=== PATIENT | male | born 1995 | race Two or more races ===

== ENCOUNTER 2016-12-22 16:43 | Emergency (ER) | payer MEDICAID ==
[~2016-12-22] VITALS: Ht 170.2 cm; Wt 74.8 kg
[2016-12-22] MEDS ORDERED: UNOBMED (16:54)
[2016-12-22 16:58] VITALS: BP 113/63
--- NOTE | 2016-12-22 18:18 | Emergency Room Report ---
History of Present Illness General Chief Complaint: Medical Clearance Source: Patient Present Illness HPI 21-year-old male presents emergency department complaining of pain, swelling and erythema to the cuticle of the left ring finger. Patient states that he had previous incision and drainage and was placed on antibiotics however he did not complete his antibiotics. The patient reports worsening of symptoms. Patient denies nausea, vomiting, fevers, chills, tenderness to the finger pad. Patient denies inability to straighten or flex the affected finger. Patient also presents in police custody and is requiring medical clearance. Denies numbness tingling or loss of sensation or gross motor movements of the extremities, incontinence of bowel or bladder. Denies CP, Palpitations, LOC, AMS , dizziness, Changes in Vision, Sensation, paresthesias, or a sudden severe headache. Allergies: Coded Allergies: SULFA (SULFONAMIDE ANTIBIOTICS) (Verified Allergy, Unknown, 12/22/16) Patient History Past Medical History: see triage record Past Surgical History: none Pertinent Family History: none Immunizations: UTD Reviewed Nursing Documentation: PMH: Agreed, PSxH: Agreed Nursing Documentation-PMH Past Medical History: No Stated History Review of Systems All Other Systems: negative except mentioned in HPI Physical Exam Vital Signs Date Time Temp Pulse Resp B/P Pulse Ox O2 Delivery O2 Flow Rate FiO2 12/22/16 16:48 98.2 86 16 113/63 99 Room Air Sp02 EP Interpretation: reviewed, normal General Appearance: no apparent distress, alert, GCS 15, non-toxic Head: normocephalic, atraumatic Eyes: bilateral eye PERRL, bilateral eye normal inspection ENT: hearing grossly normal, normal pharynx, no angioedema, normal voice Neck: full range of motion, supple/symm/no masses Respiratory: chest non-tender, lungs clear, normal breath sounds, speaking full sentences Cardiovascular #1: regular rate, rhythm, no edema Cardiovascular #2: 2+ radial (R), 2+ radial (L) Gastrointestinal: non tender, soft, no guarding, no rebound Rectal: deferred Genitourinary: normal inspection, no CVA tenderness Musculoskeletal: back normal, gait/station normal, normal range of motion, no calf tenderness, inflammation - erythema, and increased temperature to palpation of the left ring finger. , swelling, tender - TTP to the left ring finger Neurologic: alert, oriented x3, responsive, motor strength/tone normal, sensory intact, speech normal Psychiatric: judgement/insight normal, memory normal, mood/affect normal, no suicidal/homicidal ideation Skin: no rash, warm/dry, well hydrated, other - eponychia of the left ring finger Lymphatic: no adenopathy Procedures Incision and Drainage Incision and Drainage : Consent: Verbal Site: cuticle of the left ring finger Blade Size: 11 I & D Procedure: betadine prep Wound Location: upper extremity - left ring finger Wound's Depth, Shape: superficial Wound Length (cm): 0 Wound Explored: contaminated - purulent d/c expressed Splint Applied?: No Sling Applied?: No Patient Tolerated: Well Complications: None Medical Decision Making PA Attestation Dr. Viramontes is my supervising Physician whom patient management has been discussed with. Diagnostic Impression: Primary Impression: Eponychia ER Course Pt. presents to the ED c/o pain, swelling, and erythema of left ring finger Ddx considered but are not limited to cellulitis, paronychia, eponychia, ingrown toe nail, fracture, d/L, gout Vital signs: are WNL, pt. is afebrile H&PE are most consistent with eponychia of the left ring finger requiring I & D. ORDERS: none required at this time, the diagnosis is clinical ED INTERVENTIONS: I & D- see procedure note - Tylenol PO for pain - bacitracin and sterile dressing is applied. DISCHARGE: At this time pt. is stable for d/c to home. Will provide printed patient care instructions, and any necessary prescriptions. Care plan and follow up instructions have been discussed with the patient prior to discharge. Last Vital Signs Date Time Temp Pulse Resp B/P Pulse Ox O2 Delivery O2 Flow Rate FiO2 12/22/16 16:48 98.2 86 16 113/63 99 Room Air Disposition: D/C TO [facility] IN [facility] Condition: Stable Scripts Acetaminophen* (TYLENOL EXTRA STRENGTH*) 500 Mg Tablet 500 MG ORAL Q6H, #30 TAB 0 Refills Prov: Junie Henoa P.A. 12/22/16 Doxycycline Hyclate* (VIBRAMYCIN*) 100 Mg Capsule 100 MG ORAL EVERY 12 HOURS for 7 Days, #14 CAP 0 Refills Prov: Junie Henao P.AZen 12/22/16 Referrals: NOT CHOSEN [facility]/,REFERRING (PCP) Departure Forms: Nursing Home Clearance Patient Instructions: Paronychia Additional Instructions: Take medications as directed. Follow up with PCP in 3-5 days Return sooner to ED if new symptoms occur, or current symptoms become worse. - Please note that this Emergency Department Report was dictated using [employer] technology software, occasionally this can lead to erroneous entry secondary to interpretation by the dictation equipment. Junie Henao Dec 22, 2016 18:18
[2016-12-22] MEDS ORDERED: TYLENOL EXTRA500 MG ORAL (18:19)
[2016-12-22] MEDS ORDERED: VIBRAMYCIN100 MG ORAL (18:19)
[2016-12-22] MEDS ORDERED: Bacitracin Oint UD TOPIC ONE ×2 (18:23→18:30)
[2016-12-22 18:32] VITALS: BP 113/63
== END 2016-12-22 18:35 ==
LOC: EMR 17:12
DX: Z02.89 Encounter for other administrative examinations (principal); Q84.6 Other congenital malformations of nails; Z88.2 Allergy status to sulfonamides
CPT/HCPCS: 10060